=== PATIENT | female | born 1960 | race Caucasian/White ===

== ENCOUNTER → 2020-03-07 | Outpatient (CLI) | payer OTHER | END | disposition home or self-care (01) | LOC: RADUSWWP 13:56 | PROVIDERS: ATTEND Family Medicine | DX: Z53.9 Procedure and treatment not carried out, unspecified reason (principal) ==

== ENCOUNTER → 2020-04-04 | Outpatient (CLI) | payer OTHER ==
--- NOTE | 2020-04-20 11:51 | MM ---
Reason for exam: screening (asymptomatic). Last mammogram was performed 4 years and 5 months ago. History: Patient is postmenopausal and had first child at age 33. Family history of breast cancer in grandmother at age 75. Physical Findings: A clinical breast exam by your physician is recommended on an annual basis and results should be correlated with mammographic findings. MG Screening Mammo w CAD Bilateral CC and MLO view(s) were taken. Prior study comparison: November 03, 2015, mammogram. January 15, 2014, mammogram. The breast tissue is heterogeneously dense. This may lower the sensitivity of mammography. Asymmetric breast tissue in left MLO retroglandular location. This finding is changed when compared with previous exams. ASSESSMENT: Incomplete: need additional imaging evaluation, BI-RAD 0 RECOMMENDATION: Special view mammogram of the left breast. If lesion persists on supplemental views, image directed ultrasound is recommended. [facility] will attempt to contact patient to return for supplemental views and ultrasound if indicated.
== END | disposition home or self-care (01) ==
LOC: RADMAMWWP 13:47
PROVIDERS: ATTEND Family Medicine
DX: Z12.31 Encounter for screening mammogram for malignant neoplasm of breast (principal)
CPT/HCPCS: 77067

== ENCOUNTER → 2020-04-04 | Outpatient (CLI) | payer OTHER ==
--- NOTE | 2020-04-04 15:02 | US ---
EXAMINATION TYPE: US venous doppler duplex LE LT DATE OF EXAM: 04/04/2020 2:42 PM COMPARISON: NONE CLINICAL HISTORY: R58 Hemorrhage, not elsewhere classified. Pain, bruising left thigh x 4 weeks. No t rauma SIDE PERFORMED: Left TECHNIQUE: The lower extremity deep venous system is examined utilizing real time linear array sonog kapil with graded compression, doppler sonography and color-flow sonography. VESSELS IMAGED: Common Femoral Vein Deep Femoral Vein Greater Saphenous Vein * Femoral Vein Popliteal Vein Small Saphenous Vein * Proximal Calf Veins (* superficial vessels) Left Leg: Negative for DVT IMPRESSION: Grayscale, color doppler, spectral doppler imaging performed of the deep veins of the lo wer extremities. There is normal flow, compressibility, vascular waveforms.
--- NOTE | 2020-04-04 15:21 | XR ---
EXAMINATION TYPE: XR femur LT DATE OF EXAM: 04/04/2020 CLINICAL HISTORY: Pain TECHNIQUE: Two views of the left femur are obtained. COMPARISON: None FINDINGS: There is maintenance of joint space with no acute fracture or dislocation. There is calcif ication along the inner margin the upper periosteum of the proximal femur. This appears to be vascula r on oblique views. Knee joint space maintained. No erosive changes. No acute fracture. IMPRESSION: 1. No acute fracture.
--- NOTE | 2020-04-04 15:22 | XR ---
EXAMINATION TYPE: XR Hip Complete LT DATE OF EXAM: 04/04/2020 COMPARISON: NONE HISTORY: Pain TECHNIQUE: 2 views submitted FINDINGS: There is no evidence of erosive change or acute fracture. Vascular calcifications are noted. IMPRESSION: 1. No evidence of acute fracture or dislocation.
== END | disposition home or self-care (01) ==
LOC: RADUSWWP 13:49
PROVIDERS: ATTEND Family Medicine
DX: R55 Syncope and collapse (principal); R58 Hemorrhage, not elsewhere classified
CPT/HCPCS: 73502